=== PATIENT | male | born 1955 ===

== ENCOUNTER 2018-08-31 10:09 | Inpatient (IN) | payer SELFPAY ==
[~2018-08-31] VITALS: Ht 167.6 cm; Wt 83.7 kg
[2018-08-31 12:00] LABS: Calcium, Ionized (POC) 1.02 mmol/L (1.10-1.46); Creatinine (POC) 0.7 mg/dL (0.8-1.3); Hemoglobin (POC) 14.6 g/dL (13.5-17.5); Potassium (POC) 3.8 mmol/L (3.5-5.5)
[2018-08-31 12:11] LABS: BASOPHILS PERCENT AUTO 1 % (0-2); EOSINOPHILS PERCENT AUTO 0 % (0-6); Hematocrit 42.3 % (37.0-53.0); Hemoglobin 14.4 g/dL (13.5-17.5); IMMATURE GRAN ABSOLUTE AUTO 0.26 K/mm3 (0.00-0.10); IMMATURE GRAN PERCENT AUTO 2 % (0-1); LYMPHOCYTES ABSOLUTE AUTO 0.66 K/mm3 (0.84-5.20); LYMPHOCYTES PERCENT AUTO 4 % (21-46); MONOCYTES ABSOLUTE AUTO 0.67 K/mm3 (0.16-1.47); MONOCYTES PERCENT AUTO 4 % (4-13); Mean Corpuscular HGB 28.1 pg (26.0-34.0); Mean Corpuscular Volume 83 fL (80-100); Mean Platelet Volume 10.8 fL (9.1-12.4); NEUTROPHILS ABSOLUTE AUTO 15.45 K/mm3 (1.96-9.15); NEUTROPHILS PERCENT AUTO 90 % (41-73); Platelet Count 114 K/mm3 (150-400); RDW Coefficient Variation 13.6 % (11.7-14.2); RDW Standard Deviation 40.6 fL (35.1-46.3); Red Blood Cell Count 5.12 M/mm3 (4.30-5.90); White Blood Cell Count 17.14 K/mm3 (4.00-11.30)
[2018-08-31 12:31] LABS: Alanine Aminotransfer (ALT/SGP 56 U/L (12-78); Albumin/Globulin Ratio 0.4 (0.8-1.8); Alk Phos 99 U/L (50-136); Anion Gap 10 mmol/L (6-16); Aspartate Aminotrans (AST/SGOT 122 U/L (12-37); Blood Urea Nitrogen 24 mg/dL (8-24); Bun/Creatinine Ratio 38.9 (12.0-20.0); CO2, Blood 25 mmol/L (21-32); Calcium, Blood 7.8 mg/dL (8.5-10.1); Chloride, Blood 91 mmol/L (98-108); Creatinine, Blood 0.62 mg/dL (0.60-1.20); Globulin, Blood 5.4 g/dL (2.2-4.0); Glomerular Filtration Rate >60 (60-); Glucose, Blood 297 mg/dL (70-99); Potassium, Blood 3.8 mmol/L (3.5-5.5); Sodium, Blood 126 mmol/L (136-145); Total Protein, Blood 7.4 g/dL (6.4-8.2)
[2018-08-31 12:32] LABS: International Normalized Ratio 1.15
[2018-08-31 12:38] LABS: CPK Creatine Kinase 526 U/L (39-308); Ethanol (Alcohol), Blood, Med <3 mg/dL
[2018-08-31 13:02] LABS: Creatine Kinase MB Index 1.5 (0.0-4.0)
[2018-08-31 15:14] LABS: Source, Urine Clean Catch
[2018-08-31 15:41] LABS: Appearance, Urine Clear (Clear); Bilirubin, Urine Neg (Neg); Blood, Urine 5+ (Neg); Color, Urine Yellow (P-Yellow); Glucose Qualitative, Urine 4+ (Neg); Ketones, Urine 1+ (Neg); Leukocyte Esterase, Urine Neg (Neg); Nitrite, Urine Neg (Neg); Protein, Urine 3+ (Neg); Urobilinogen, Urine 1+ (Normal)
--- NOTE | 2018-08-31 15:43 | NUR ---
PT ADMITTED TO ICU 7 AT 1435 FOR SEPSIS, ENCEPHALOPATHY, RIGHT FOOT NECROSIS/CELLULITIS, AND ELEVATED TROPONIN. PT DROWSY, FALLS ASLEEP INBETWEEN QUESTIONS. DIFFICULT TO UNDERSTAND AT TIMES; MUMBLES ANSWERS. SOME CONFUSED CONVERSATION. ORINETED TO SELF AND FAMILY. STATES [place] [facility] [place]. PT DENIES C/O PAIN BUT THEN GROANS IN PAIN WHEN MOVED. DENIES CHEST PAIN, BUT THEN LATER STATES HIS CHEST HURTS WITH A DEEP BREATH IN. CRITICAL TROPONIN CALLED INTO DR CANELA; SHE WILL SEE PT SHORTLY. PT ARRIVED COVERED IN DRIED STOOL FROM HEAD TO TOE. THE MAJORITY OF THE STOOL WAS CONCENTRATED ON HANDS, CHEST, GROIN, AND BUTTOCKS. PT GIVEN FULL BATH. PT WITH SCABS SCATTERED OVER BODY;SEE PICTURES. RIGHT HAND HAS SCATTERED CYANOTIC TISSUE, RIGHT INDEX FINGER COMPLETELY CYANOTIC; DOES NOT JOAQUÍN. PICTURES TAKEN. RIGHT BIG TOE NACROTIC/BLACK, GOOD CAP REFILL TO SURROUNDING TISSUE, SURROUNDING TISSUE EDEMATOUS, WITH ERYTHEMA, AND WARM. BUTTOCKS RED; MEPILEX PLACED. ON ADMIT PT SATURATED IN URINE. FOLETY TEMP PROBE PLACED; URINE SENT.
[2018-08-31 15:52] LABS: U Amphetamine Screen DETECTED; U Barbituate Screen Not Detected; U Benzodiazapine Screen Not Detected; U Buprenorphine Screen Not Detected; U Cannabinoids Screen Not Detected; U Cocaine Screen Not Detected; U Methadone Screen Not Detected; U Methamphetamine Screen DETECTED; U Opiates Screen Not Detected; U Oxycodone Screen Not Detected; U Phencyclidine Screen Not Detected; U Propoxyphene Screen Not Detected
[2018-08-31 15:57] LABS: Bacteria Rare /hpf; Red Blood Cells, Urine 0-2 /hpf (0-2); Squamous Epithelial Cells Rare /hpf (Few); White Blood Cells, Urine Not Seen /hpf (0-5)
--- NOTE | 2018-08-31 17:35 | NUR ---
UNABLE TO VERIFY MEDS PT IS UNABLE TO REMEMBER THEM, STATES [facility] [place] UNABLE TO VERIFY HX INFORMATION. WHEN VERIFING IF HT WAS 5'6" PT STATED, "IF I STAND ON A CHAIR... AND CANDY FALLS...AT ONE TIME I WAS SIX FEET TALL". PT COUGHING UP THICK CREAM SPUTUM AND SPITTING IT ON BLANKET. YANKAUR GIVEN; PT FORGETS TO USE IT. RIGHT TOES CLEANED THOROUGHLY. XEROFORM PLACED TO BIG TOE THEN WRAPPED W GAUZE. DR WINCHESTER IN TO SEE PT, PT IS TO BE REFERRED TO PODIATRY PER DR WINCHESTER. DUPLEX STUDY IN PROCESS. PT WAS RESPONSIVE TO 500CC BOLUS. ABLE TO CONTACT FAMILY THERE ARE NO CONTACT NUMBERS AVAILABLE IN CHART AND PT CANNOT RECALL PHONE NUMBERS.
[2018-08-31 18:11] LABS: International Normalized Ratio 1.19; Prothrombin Time Results 12.4 Sec (9.7-11.5)
[2018-08-31 18:40] LABS: Creatine Kinase MB 6.2 ng/mL (0.0-3.6); Creatine Kinase MB Index 1.5 (0.0-4.0)
[2018-08-31 18:52] LABS: Troponin I 1.64 ng/mL (0.000-0.040)
--- NOTE | 2018-08-31 21:00 | NUR ---
CARE ASSUMED REPORT RECEIVED, CARE ASSUMED AT 1900. PT DROWSY, AROUSES EASILY FOR ASSESSMENT. PT CONTINUES TO BE CONFUSED, UNSURE OF LOCATION, SITUATION OR DATE/TIME. VITALS STABLE. SEE FLOWSHEET. SEE ASSESSMENT. PT LEFT WITH CALL LIGHT IN REACH, BED IN LOWEST POSITION, BED ALARM IN PLACE.
[2018-09-01 01:10] LABS: Creatine Kinase MB Index 1.6 (0.0-4.0)
[2018-09-01 01:21] LABS: Troponin I 1.44 ng/mL (0.000-0.040)
--- NOTE | 2018-09-01 02:51 | NUR ---
UPDATE SINCE PREVIOUS NOTE, PT'S NEURO STATUS HAS IMPROVED. PT CONTINUES TO BE DROWSY, MINIMALLY INTERACTIVE BUT DOES RESPOND APPROPRIATELY. BP LOW BUT MAP CONTINUES TO BE GREATER THAN 65. HR STABLE. TEMP IMPROVED AFTER TYLENOL ADMIN. SEE FLOWSHEET. SEE REASSESSMENTS. PT MOVING AROUND IN BED FREQUENTLY, NOT USING CALL LIGHT FOR NEEDS AT THIS TIME BUT HAS NOT ATTEMPTED TO GET OUT OF BED.
[2018-09-01 03:33] LABS: BASOPHILS ABSOLUTE AUTO 0.07 K/mm3 (0.00-0.23); BASOPHILS PERCENT AUTO 0 % (0-2); EOSINOPHILS PERCENT AUTO 0 % (0-6); Hematocrit 39.1 % (37.0-53.0); Hemoglobin 13.1 g/dL (13.5-17.5); IMMATURE GRAN ABSOLUTE AUTO 0.28 K/mm3 (0.00-0.10); IMMATURE GRAN PERCENT AUTO 2 % (0-1); LYMPHOCYTES ABSOLUTE AUTO 1.11 K/mm3 (0.84-5.20); LYMPHOCYTES PERCENT AUTO 6 % (21-46); MONOCYTES ABSOLUTE AUTO 1.04 K/mm3 (0.16-1.47); MONOCYTES PERCENT AUTO 6 % (4-13); Mean Corpuscular HGB 28.6 pg (26.0-34.0); Mean Corpuscular HGB Conc 33.5 g/dL (31.5-36.5); Mean Corpuscular Volume 85 fL (80-100); NEUTROPHILS ABSOLUTE AUTO 16.53 K/mm3 (1.96-9.15); NEUTROPHILS PERCENT AUTO 87 % (41-73); RDW Coefficient Variation 13.9 % (11.7-14.2); RDW Standard Deviation 43.6 fL (35.1-46.3); Red Blood Cell Count 4.58 M/mm3 (4.30-5.90); White Blood Cell Count 19.03 K/mm3 (4.00-11.30)
--- NOTE | 2018-09-01 03:35 | NUR ---
ADMISSION HISTORY / MED REC ATTEMPTED TO BEGIN ADMISSION HISTORY AND MED REC PROCESS WITH PATIENT HE IS NOW ORIENTED. PT CONTINUES TO BE POOR HISTORIAN AND UNABLE TO PROVIDE CONSISTENT, RELEVANT INFORMATION WHEN QUESTIONED ABOUT HISTORY AND MEDICATIONS.
[2018-09-01 03:37] LABS: Mean Platelet Volume 12.4 fL (9.1-12.4); Platelet Count 94 K/mm3 (150-400)
[2018-09-01 04:03] LABS: Alanine Aminotransfer (ALT/SGP 46 U/L (12-78); Albumin, Blood 1.7 g/dL (3.4-5.0); Albumin/Globulin Ratio 0.4 (0.8-1.8); Alk Phos 75 U/L (50-136); Anion Gap 7 mmol/L (6-16); Aspartate Aminotrans (AST/SGOT 101 U/L (12-37); Bilirubin, Direct 1.4 mg/dL (0.0-0.3); Bilirubin, Indirect 0.5 mg/dL (0.1-0.7); Bilirubin, Total 1.9 mg/dL (0.1-1.0); Blood Urea Nitrogen 34 mg/dL (8-24); CHOL/HDL RATIO 6.3; CO2, Blood 27 mmol/L (21-32); Chloride, Blood 98 mmol/L (98-108); Cholesterol 63 mg/dL (50-200); Creatinine, Blood 0.79 mg/dL (0.60-1.20); Globulin, Blood 4.8 g/dL (2.2-4.0); Glomerular Filtration Rate >60 (60-); Glucose, Blood 290 mg/dL (70-99); HDL Cholesterol 10 mg/dL (>39); LDL/HDL RATIO 2.1; Low Density Lipoprotein Chol 21 mg/dL (0-110); Potassium, Blood 4.1 mmol/L (3.5-5.5); Sodium, Blood 132 mmol/L (136-145); Total Protein, Blood 6.5 g/dL (6.4-8.2); Triglycerides 162 mg/dL (30-160); Very Low Density Lipoprot Chol 32 mg/dL (6-32)
--- NOTE | 2018-09-01 06:20 | NUR ---
SUMMARY THOUGH INTERMITTENTLY ORIENTED THROUGHOUT THE NIGHT, PT HAS PERIODS OF CONFUSION AND DISORIENTATION. PT IS UNABLE TO PROVIDE CONCRETE ANSWERS TO QUESTIONS, PROVIDING VAGUE AND VARYING RESPONSES. SKIN ASSESSMENTS UNCHANGED. BLOOD PRESSURE HAS BEEN BORDERLINE, BUT MAPS CONTINUE TO BE GREATER THAN 65. HR STABLE. TEMP CONTINUES TO BE IMPROVED SINCE TYLENOL ADMIN. SEE REASSESSMENTS AND VITALS FLOWSHEETS.
--- NOTE | 2018-09-01 07:13 | NUR ---
REPORT TO JJ PORTER TO ASSUME CARE
--- NOTE | 2018-09-01 09:00 | NUR ---
ASSUMED CARE OF PT AT THIS TIME.
--- NOTE | 2018-09-01 09:45 | NUR ---
DR CANELA IN TO ASSESS PT. DR CANELA TO CONSULT DR JOVEL FOR POOR CIRCULATION AND INCREASING DUSKY/DARK FINGERS. PT TO REMAIN NPO EXCEPT SM AMT OF ICE CHIPS UNTIL CONSULTS DONE. PT REPOSITIONED IN BED AND PROVIDE ICE CHIPS.
--- NOTE | 2018-09-01 10:20 | NUR ---
DR SALVADOR CONSULT: CALLED OFFICE AND THEY REC THIS RN CALL DR'S CELL PHONE. CALLED AND LEFT MESSAGE WITH CONSULT ON DR SALVADOR'S CELL PHONE.
--- NOTE | 2018-09-01 10:22 | NUR ---
PT UPDATE: PT NOW IN ATRIL FIB 140-160'S RANGE. PT ASYMPTOMATIC AT THIS TIME. EKG OBTAINED AND DR CANELA CALLED AND INFORMED. AWAITING NEW ORDERS FOR CARDIAC MEDS FOR RATE MANAGEMENT.
--- NOTE | 2018-09-01 10:25 | NUR ---
DR JOVEL CONSULT: CALLED AND LEFT MESSAGE WITH DEMETRIO AT [facility] OFFICE FOR CONSULT WITH DR JOVEL FOR DIGITAL ISCHEMIA.
--- NOTE | 2018-09-01 10:47 | NUR ---
SPOKE WITH DR SALVADOR. INFORMED HIM OF PODIATRY CONSULT. CONFIRMED A FOOT XRAY WAS DONE ON THIS PT. DR SALVADOR TO CONSULT ON PT LATER TODAY.
--- NOTE | 2018-09-01 12:29 | NUR ---
ECHOCARDIOGRAM COMPLETE
--- NOTE | 2018-09-01 15:00 | NUR ---
DR SALVADOR INTO CONSULT ON PT. DR HANSON TO CALL DR JOVEL TO DISCUSS TX OPTIONS.
--- NOTE | 2018-09-01 16:47 | NUR ---
DR JOVEL AT THE BEDSIDE TO CONSULT ON PT. PT CAN EAT NOW, DR JOVEL TO TAKE PT IN FOR INTERVENTION IN THE AM. PT TO BE NPO AFTER MIDNOC.
--- NOTE | 2018-09-01 17:00 | NUR ---
SHIFT ASSESSMENT: PT REMAINS ALERT AND ORIENTED TO SELF/PLACE. HOWEVER, REMAINS SOMEWHAT CONFUSED. PT IS COOPERATIVE AND REDIRECTABLE, HE DOES PULL AT LINES AT TIMES. PT HAS PAIN TO TOUCH IN THE RT HAND. RT HAND SLIGHTLY LESS DUSKY/DARK THAN IN COMPARISON TO THIS AM. 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 LUNGS REMAIN CLEAR BUT DIMINISHED IN THE BILATERAL BASES. 02 SATS >90% ON 2L 02 VIA N/C. PT DOES AT TIMES PULL OFF O2. HR REMAINS SR 8O'S RANGE AFTER CONVERTING FROM ATRIAL FIB WITH FIRST DOSE OF METOPROLOL IVP. CENTRAL LINE IN RT IJ WITH NS @ 150ML/HR. PT'S RT FOOT WITH A NECROTIC RT BIG TOE, WHICH IS NOW COVERED WITH FOAM DRSGS PER DR SALVADOR. NO PALPABLE PULSES IN THIS FOOT. ALL EXTREMITIES REMAIN COOL TO THE TOUCH. PT DRAINING DARK TANYA/ORANGE URINE PER HARMON TO GRAVITY (350ML THIS SHIFT). NO BM THIS SHIFT. PT CAN EAT AN ADA DIET TONIGHT, THEN WILL BE NPO AFTER MIDNOC FOR AN ANGIOGRAM PER DR JOVEL. -FULL CODE -CONTACT ISOLATION -NPO AFTER MIDNOC -CBG'S AC/HS, TX PER S/S
--- NOTE | 2018-09-01 17:30 | NUR ---
REPORTED OFF TO JJ GARCIA WHOM IS ASSUMING CARE OF PT AT THIS TIME.
[2018-09-01 18:19] LABS: International Normalized Ratio 1.17; Prothrombin Time Results 12.2 Sec (9.7-11.5)
--- NOTE | 2018-09-01 18:43 | NUR ---
CENTRAL LINE REMOVAL: THIS RN INTO ROOM WHEN PT CALLED OUT TO SAY HE WAS "BLEEDING DOWN HIS NECK." CENTRAL LINE FOUND OUT, SUTURES REMAINED INTACT & LINE HAD BEEN PULLED OUT FROM BENEATH DRESSING WHICH WAS ALSO STILL MOSTLY INTACT. THIS RN HAD BEEN IN THE ROOM FOR LAB DRAW, WHICH WAS PULLED OFF THE CENTRAL LINE, APPROX 10 MINS PRIOR & DRESSING/LINE WERE INTACT AT THAT TIME. MANUAL PRESSURE HELD TO SITE UNTIL BLEEDING RESOLVED, SUTURES REMOVED FROM PT NECK & CLEAR OCCLUSIVE DRESSING PLACED OVER INSERTION SITE. PT SHOWING NO SIGNS OF DISTRESS AT THIS TIME, REMAINS ON RA W/ O2 SATS > 90%. MONITOR CONTINUES SHOWING SR W/ HR 70s. WILL CONTINUE TO MONITOR & UPDATE NEEDED.
--- NOTE | 2018-09-01 19:49 | NUR ---
CARE ASSUMED BEDSIDE REPORT RECEIVED FROM JJ GARCIA. CARE ASSUMED AT 1900. PT ALERT, ORIENTED THOUGH CONTINUES TO BE A POOR HISTORIAN, PROVIDING VAGUE AND CONTRADICTING ANSWERS TO QUESTIONS. PT REPORTS FEELING FRUSTRATED THAT HE DOES NOT HAVE HIS GLASSES OR HIS WALLET. ENCOURAGED PT TO THINK OF FAMILY NAMES/NUMBERS FOR STAFF TO CONTACT. PT REQUESTING TO USE COMPUTER, LOGIN TO [employer] DOCUMENTS TO FIND PHONE NUMBERS. REQUESTING A PATIENT COMPUTER, UNABLE TO PROVIDER THIS. PT ABLE TO PROVIDE NAME AND PHONE NUMBER OF BROTHER. ATTEMPTED CALLING THIS NUMBER AND IT WAS A NONEXISTENT NUMBER. PT STATES HE LIVES IN [place] BUT THAT HE WOULD BE ABLE TO COME DOWN TO HELP HIM GATHER HIS THINGS. WILL CONTINUE RESEARCH AND PROMPT PT TO PROVIDE FAMILY/FRIEND INFORMATION. PT HAS ONE IV AT THIS TIME. VANCO INFUSING AND NOT COMPATABLE WITH HEPARIN. ONCE VANCO INFUSION COMPLETE, HEPARIN WILL BE STARTED PER MD ORDERS. BP LOW, MAP CONTINUES TO BE GREATER THAN 65. PT AFEBRILE. 02 SATURATIONS GREATER THAN 90% ON ROOM AIR. SEE ASSESSMENT AND VITALS FLOWSHEET. PT LEFT WITH CALL LIGHT IN HAND, SCROLLING THROUGH TV CHANNELS. BED IN LOWEST POSITION, ALARM IN PLACE.
--- NOTE | 2018-09-01 20:50 | NUR ---
IV ACCESS ATTEMPTED TO GAIN SECONDARY IV ACCESS UNSUCCESSFULLY
[2018-09-01] MEDS ORDERED: AMLO5 PO (21:10)
--- NOTE | 2018-09-01 21:13 | NUR ---
MED REC PT ASKED ABOUT MEDS AND APPEARED ABLE TO GIVE ACCURATE INFORMATION. WHEN ATTEMPT WAS MADE TO COMPLETE FULL MED REC PT GIVING VARYING NAMES, DOSES AND FREQUENCY OF MEDICATIONS. DUE TO THE INACCURACY OF THIS, MED REC PER PATIENT INFORMATION SOURCE. MEDICAL RECORDS FROM [facility] LOCATED ON PAPER CHART. ONLY ACTIVE MEDICATION IS AMLODIPINE. UPDATED MED REC. PT UNSURE OF LAST TIME HE TOOK THIS MEDICATION. ALSO [facility] THAT PT HAS MULTIPLE " OUTPATIENT MEDS." SEVERAL OF THESE MEDS PT REPORTS HE STILL TAKES. DID NOT ADD " OUTPATIENT MEDS" IN MEDICAL RECORD DUE TO INABILITY TO VALIDATE INFORMATION.
--- NOTE | 2018-09-02 04:13 | NUR ---
NPO STATUS PRIOR TO MIDNIGHT, PT GIVEN FLUIDS PER ORDERS. ON MULTIPLE OCCASIONS PT DRINKING WATER WITH HOB ELEVATED AND THEN BEGINS COUGHING REPEATEDLY. ATTEMPTED TO ASSIST PT WITH SMALL AMOUNTS OF WATER AND PT NOT COOPERATIVE, DRINKING LARGE AMOUNTS AT A TIME. CONCERN FOR POSSIBLE ASPIRATION WITH REPEATED COUGHING EPISODES POST ORAL INTAKE. EDUCATED PT MULTIPLE TIMES, PT MADE NPO PRIOR TO MIDNIGHT DUE TO THIS CONCERN. PT AGITATED ABOUT THIS, UNRECEPTIVE TO EDUCATION, STATING "WELL THEN JUST WATER RATHER THAN SODA." EDUCATED EXTENSIVELY AND PT NOT RETAINING INFORMATION. HOWEVER, SINCE THEN PT HAS SETTLED AND SLEPT INTERMITTENTLY, PROVIDED WITH ORAL SWABS AND ACCEPTING OF THIS INTERVENTION.
[2018-09-02 06:14] LABS: Vancomycin, Trough 14.6 ug/mL (5.0-10.0)
[2018-09-02 07:55] LABS: BASOPHILS ABSOLUTE AUTO 0.04 K/mm3 (0.00-0.23); BASOPHILS PERCENT AUTO 0 % (0-2); EOSINOPHILS PERCENT AUTO 0 % (0-6); IMMATURE GRAN PERCENT AUTO 1 % (0-1); LYMPHOCYTES ABSOLUTE AUTO 1.13 K/mm3 (0.84-5.20); LYMPHOCYTES PERCENT AUTO 8 % (21-46); MONOCYTES ABSOLUTE AUTO 0.59 K/mm3 (0.16-1.47); MONOCYTES PERCENT AUTO 4 % (4-13); Mean Corpuscular HGB 27.7 pg (26.0-34.0); Mean Corpuscular HGB Conc 31.6 g/dL (31.5-36.5); Mean Platelet Volume 12.4 fL (9.1-12.4); NEUTROPHILS ABSOLUTE AUTO 12.06 K/mm3 (1.96-9.15); NEUTROPHILS PERCENT AUTO 86 % (41-73); Platelet Count 123 K/mm3 (150-400); RDW Coefficient Variation 14.7 % (11.7-14.2); RDW Standard Deviation 47.7 fL (35.1-46.3); Red Blood Cell Count 4.33 M/mm3 (4.30-5.90); White Blood Cell Count 14.02 K/mm3 (4.00-11.30)
[2018-09-02 07:56] LABS: Mean Corpuscular Volume 88 fL (80-100)
[2018-09-02 08:08] LABS: Alanine Aminotransfer (ALT/SGP 81 U/L (12-78); Albumin, Blood 1.5 g/dL (3.4-5.0); Albumin/Globulin Ratio 0.3 (0.8-1.8); Alk Phos 83 U/L (50-136); Anion Gap 11 mmol/L (6-16); Aspartate Aminotrans (AST/SGOT 214 U/L (12-37); Bilirubin, Total 1.7 mg/dL (0.1-1.0); Blood Urea Nitrogen 46 mg/dL (8-24); Bun/Creatinine Ratio 48.1 (12.0-20.0); CO2, Blood 22 mmol/L (21-32); Calcium, Blood 6.9 mg/dL (8.5-10.1); Chloride, Blood 100 mmol/L (98-108); Creatinine, Blood 0.96 mg/dL (0.60-1.20); Globulin, Blood 4.9 g/dL (2.2-4.0); Glomerular Filtration Rate >60 (60-); Glucose, Blood 145 mg/dL (70-99); Potassium, Blood 3.7 mmol/L (3.5-5.5); Sodium, Blood 133 mmol/L (136-145); Total Protein, Blood 6.4 g/dL (6.4-8.2)
--- NOTE | 2018-09-02 08:54 | NUR ---
DR. REYES CHAMBERS ROUNDED ON PT. STATES PT NEEDS TRANSFERRED FOR POSSIBLE HEART SURGERY R/T VALVE VEGITATION. PLANS TO CALL DR. CANELA TO SET UP ARRANGEMENTS. PT AGREEABLE TO PLAN OF CARE.
--- NOTE | 2018-09-02 11:35 | NUR ---
DR. BISHOP DR. SALVADOR HERE TO SEE PT. INFORMED HIM THAT PT IS WAITING TO BE TRANSFERRED TO [facility] AT THIS TIME R/T VEGETATION ON HEART AND SEPTIC EMBOLI.
--- NOTE | 2018-09-02 12:19 | NUR ---
[facility] DR. MONTILLA HAS ACCEPTED CARE OF THE PT. AWAITING BED ASSIGNMENT AT THIS TIME. PT UPDATED.
--- NOTE | 2018-09-02 16:59 | NUR ---
PT HAVING COUGHING FITS AND DIFFICULTY CATCHING BREATH WITH THESE FITS. CALL TO DR. CANELA FOR ALBUTEROL ORDERS. RT NOTIFIED PT REQUESTING BREATHING TREATMENT.
--- NOTE | 2018-09-02 19:21 | NUR ---
SHIFT SUMMARY PT AWAITING BED AT [facility] AT THIS TIME. VITAL SIGNS STABLE T/O SHIFT. CONTINUES ON HEPARIN GTT AND NS AT 150ML/HR. NO CHANGES TO R HAND OR R FOOT ASSESSMENTS. HARMON CONTINUES TO DRAIN TO GRAVITY. MONITOR CONTINUES TO SHOW SINUS RHYTHM. PT USING CALL LIGHT FOR NEEDS, POSITIONING SELF. HANDOFF REPORT GIVEN TO JJ RIVERA TO ASSUME CARE OF PT.
--- NOTE | 2018-09-02 19:45 | NUR ---
ASSUMED CARE BEDSIDE REPORT RECIEVED. UPON ENTERING ROOM PT IS AWAKE, ALERT, AND ORIENTED. PT FOLLOWING COMMANDS WELL. PT IS IRRITABLE AT TIMES AND IS INSISTENT UPON BEING ABLE TO EAT. EXTENSIVE CONVORSATION WITH PT ABOUT NPO STATUS AND PENDING TRANSFER TO [facility] FOR FURTHER TREATMENT. PT CONTINUES TO BE ADAMANT AND FOCUSED ON EATING. VITAL SIGNS STABLE AT THIS TIME, PT ON ROOM AIR. PT WITH OCCASIONAL COUGHING FITS THAT RESOLVE. PIV'S WITH HEPARIN AT 16 UNITS/KG/HR PER PHARMACY, NS AT 150 ML/HR, AND ZOSYN INFUSING. CLEAR OCCLUSIVE DRESSING IN PLACE TO PREVIOUS RIJ CENTRAL LINE SITE. PT WITH LEFT BKA. PT WITH MULTIPLE WOUNDS/SCABS AND AREAS OF MOTTLING TO EXTREMITIES. PT WITH RIGHT GREAT TOE GANGRENOUS WITH DRESSING IN PLACE. SEE PHOTOS IN CHART FOR MORE WOUND INFO. HARMON TEMP PROBE IN PLACE WITH YELLOW OUTPUT NOTED. PT REPOSITIONING SELF IN BED INDEPENDENTLY. PT DENIES PAIN OR DISCOMFORT AT THIS TIME. ST ELEVATION NOTED, NO NEW CHANGES TO RHYTHM PER DAY SHIFT RN. WILL CONTINUE TO MONITOR.
--- NOTE | 2018-09-02 20:46 | NUR ---
[facility] TRANSFER UPDATE CALLED TO INQUIRE ABOUT BED STATUS. NO BED AT THIS TIME AND NO ETA FOR BED AT THIS TIME. UPDATED ABOUT CURRENT PT CONDITION. [facility] TO CALL WHEN BED IS AVAILABLE.
--- NOTE | 2018-09-03 05:28 | NUR ---
SHIFT SUMMARY NO ACUTE CHANGES THIS SHIFT. PT HAS REMAINED ALERT, ORIENTED, AND AWAKE THROUGHOUT MOST OF THE SHIFT. PT IS RESTING QUIETLY AT THIS TIME. PT FOLLOWS COMMANDS APPROPRIATELY. PT CONTINUES TO ASK FOR FOOD DESPITE NUMEROUS TIMES EDUCATING THE PT ABOUT REASONS FOR NPO STATUS. PT REMAINS ON ROOM AIR. VITAL SIGNS STABLE WITH SBP 80-100'S. ST ELEVATION UNCHANGED. HEPARIN GTT INFUSING AT 18 UNITS/KG/HR PER PHARMACY. NS AT 150 ML/HR. HARMON IN PLACE WITH DARK YELLOW OUTPUT NOTED. WOUNDS REMAIN UNCHANGED. WILL CONTINUE TO MONITOR AND REPORT OFF TO ONCOMING RN.
--- NOTE | 2018-09-03 08:00 | NUR ---
ASSUMED CARE ASSUMED CARE OF PT AT 0700. REPORT RECEIVED FROM JJ RIVERA. PT AWAKE, ALERT AND ORIENTED. DENIES ANY COMPLAINTS OF PAIN AT THIS TIME. VITAL SIGNS STABLE. MONITOR SHOWS SINUS RHYTHM WITH ONGOING MINIMAL ST ELEVATION NOTED. SPO2 100% ON ROOM AIR. PT CONTINUES TO HAVE OCCASIONAL HARSH COUGH, COUGHING UP THICK PALE YELLOW SPUTUM. PT CONTINUES TO HAVE HARMON CATH IN PLACE, DRAINING YELLOW URINE TO GRAVITY. PIV X2, HEPARIN GTT AT 18UNITS/KG/HR, AND NS AT 150ML/HR. PT USING CALL LIGHT APPROPRIATELY FOR NEEDS. WILL CONTINUE TO MONITOR.
[2018-09-03 08:13] LABS: Hematocrit 35.5 % (37.0-53.0); Hemoglobin 11.5 g/dL (13.5-17.5); Mean Corpuscular HGB 27.9 pg (26.0-34.0); Mean Corpuscular HGB Conc 32.4 g/dL (31.5-36.5); Mean Corpuscular Volume 86 fL (80-100); Mean Platelet Volume 11.2 fL (9.1-12.4); Platelet Count 162 K/mm3 (150-400); RDW Coefficient Variation 14.8 % (11.7-14.2); RDW Standard Deviation 47.1 fL (35.1-46.3); Red Blood Cell Count 4.12 M/mm3 (4.30-5.90); White Blood Cell Count 12.44 K/mm3 (4.00-11.30)
[2018-09-03 08:25] LABS: Albumin, Blood 1.5 g/dL (3.4-5.0); Anion Gap 9 mmol/L (6-16); Blood Urea Nitrogen 41 mg/dL (8-24); Bun/Creatinine Ratio 46.3 (12.0-20.0); CO2, Blood 22 mmol/L (21-32); Calcium, Blood 6.4 mg/dL (8.5-10.1); Chloride, Blood 104 mmol/L (98-108); Creatinine, Blood 0.89 mg/dL (0.60-1.20); Glomerular Filtration Rate >60 (60-); Glucose, Blood 185 mg/dL (70-99); Phosphorus, Blood 3.1 mg/dL (2.5-4.9); Potassium, Blood 3.4 mmol/L (3.5-5.5); Sodium, Blood 135 mmol/L (136-145)
[2018-09-03 08:32] LABS: BAND PERCENT MAN 5 % (0-8); BASOPHILS PERCENT MAN 0 % (0-2); EOSINOPHILS PERCENT MAN 0 % (0-6); LYMPHOCYTES ABSOLUTE MAN 1.24 K/mm3 (0.84-5.20); LYMPHOCYTES PERCENT MAN 10 % (21-46); MONOCYTES ABSOLUTE MAN 0.62 K/mm3 (0.16-1.47); MONOCYTES PERCENT MAN 5 % (4-13); NEUTROPHILS ABSOLUTE MAN 10.57 K/mm3 (1.96-9.15); SEG NEUTROPHILS PERCENT MAN 80 % (41-73); TOTAL CELLS COUNTED 100
--- NOTE | 2018-09-03 09:12 | NUR ---
[facility] AUTO DAMAGE ADJUSTER CALLED FOR UPDATE ON PT. SHE STATES THEIR BEDS ARE FULL AND THEY ARE AWAITING DISCHARGES BEFORE THE PT CAN BE TRANSFERRED. SHE STATES A BED MAY NOT BECOME AVAILABLE TODAY. DR. CANELA NOTIFIED.
--- NOTE | 2018-09-03 12:15 | NUR ---
HANDOFF REPORT GIVEN TO JJ PEPPER TO ASSUME CARE OF PT.
--- NOTE | 2018-09-03 18:37 | NUR ---
SHIFT SUMMARY PT CONTINUES TO BE STABLE. AWAITING TRANSF[place] [facility] PT WAS CHANGED TO PCU STATUS THIS SHIFT. PT CONTINUES TO HAVE HARMON CATHETER IN PLACE, DRAINING TO GRAVITY. HEPARIN GTT CONTINUES AT 18UNITS/KG/HR AND NS DECREASED TO 60ML/HR. PT USING CALL LIGHT APPROPRIATELY FOR NEEDS. WILL CONTINUE TO MONITOR PT AND GIVE HANDOFF REPORT TO ONCOMING RN WHEN AVAILABLE.
--- NOTE | 2018-09-03 19:30 | NUR ---
ASSUMED CARE BEDSIDE REPORT RECIEVED. PT IS AWAKE, ALERT, AND ORIENTED. PT FOLLOWING COMMANDS APPROPRIATELY. PT DENIES PAIN OR DISCOMFORT AT THIS TIME. VITAL SIGNS STABLE WITH PT ON ROOM AIR. ST ELEVATION NOTED, UNCHANGED. NS INFUSING AT 60 ML/HR, HEPARIN AT 18 UNITS/KG/HR, AND ZOSYN IVPB. PT WITH HARMON IN PLACE WITH YELLOW OUTPUT NOTED. PT WITH MULTIPLE DIFFERENT WOUNDS THROUGHOUT AND GANGRENOUS RIGHT GREAT TOE. SEE PHOTOS IN CHART. WOUNDS UNCHANGED. PT WITH LEFT BKA. PT MOVING AROUND AND FREQUENTLY REPOSITIONING SELF IN BED INDEPENDENTLY. PENDING TRANSFER TO [facility], AWAITING ON BED AT THIS TIME. WILL CONTINUE TO MONITOR.
--- NOTE | 2018-09-04 01:08 | NUR ---
[facility] TRANSFER PT TO BE TRANSFERED TO [facility] UNIT 11K, ROOM 19. REPORT CALLED TO RN TO ASSUME CARE. ALL QUESTIONS ANSWERED. ALL PT BELONGINGS GATHERED AND TO BE TAKEN WITH PT. PT TO BE TRANSFERED [facility]IA [facility] WITH [facility]. PT ON ROOM AIR. PT TRANSFERED WITH NS AT 60 ML/HR AND HEPARIN AT 18 UNITS/KG/HR.
--- NOTE | 2018-09-04 02:01 | NUR ---
TRANSFER OUT PT TRANSFERED OUT TO [facility] VIA EMS AT 0200. ALL BELONGINGS SENT WITH PT.
== END 2018-09-04 02:00 | disposition short-term general hospital (02) | DRG 871 ==
LOC: ER 10:09 → ICUW 13:15 → ICUE 13:15
PROVIDERS: Emergency Medicine; Pharmacist; Radiology Diagnostic Radiology; ADMIT Internal Medicine
DX: A40.0 Sepsis due to streptococcus, group A (principal); G92 Toxic encephalopathy; I33.0 Acute and subacute infective endocarditis; E87.1 Hypo-osmolality and hyponatremia; L03.115 Cellulitis of right lower limb; I76 Septic arterial embolism; E11.52 Type 2 diabetes mellitus with diabetic peripheral angiopathy with gangrene; I96 Gangrene, not elsewhere classified; R65.20 Severe sepsis without septic shock; Z89.612 Acquired absence of left leg above knee; F32.9 Major depressive disorder, single episode, unspecified; F17.210 Nicotine dependence, cigarettes, uncomplicated; F15.10 Other stimulant abuse, uncomplicated; Z59.0 Homelessness; D69.6 Thrombocytopenia, unspecified; I99.8 Other disorder of circulatory system; Z99.3 Dependence on wheelchair; I35.1 Nonrheumatic aortic (valve) insufficiency; G89.4 Chronic pain syndrome; Z79.82 Long term (current) use of aspirin
CPT/HCPCS: 36415; 36556; 51702; 70450; 71045; 73620; 80047; 80048; 80053; 80061; 80069; 80076; 80202; 81001; 82550; 82553; 82947; 83036; 83605; 84443; 84484; 85014; 85025; 85610; 85651; 85730; 86140; 86430; 87040; 87147; 90686; 93005; 93010; 93306; 93926; 93931; 94640; 96361-59; 96365-59; 99285-25; C1751; G0480; J0696; J1644; J1650; J2543; J3370; J7030; J7050; J7120